=== PATIENT | female | born 1970 | race Caucasian/White ===

== ENCOUNTER 2018-02-07 20:02 | Emergency (ER) | payer OTHER ==
[2018-02-07] MEDS ORDERED: ONDANSETRON 4 MG/2 ML VIAL IVP ONE (20:59)
[2018-02-07] MEDS ORDERED: NS 1,000 ML IV ONE (20:59)
--- NOTE | 2018-02-07 20:59 | EDPHY ---
H & P Stated Complaint: c/o upper abd/n/v getting progressively worse, ongoing x 29 days Time Seen by Provider: 02/07/18 20:59 HPI/ROS: HPI CHIEF COMPLAINT: Abdominal pain HISTORY OF PRESENT ILLNESS: This is a 47-year-old female, otherwise healthy, she presents emergency room with abdominal pain she states she has had rather severe over the past 29 days. She reports that she has been suffering from what she thinks is gastritis for the past year. She has been self medicating with omeprazole. She did finally see her doctor yesterday who thought it may be gastritis as well however was told to go the emergency room if the pain got worse. She states she has been vomiting all day. Yellow ascitic vomit. Denies any chest pain or shortness of breath. Comes in waves rather severe. The pain is located in her epigastric region. Currently 8/10. Denies black tarry stools. Denies diarrhea. Denies chest pain or shortness of breath or pleuritic pain. Past Medical History: Self-diagnosed gastritis Past Surgical History: Thumb surgery Social History: Denies daily use drugs alcohol tobacco. Family History: Noncontributory ROS REVIEW OF SYSTEMS: A comprehensive 10 point review of systems is otherwise negative aside from elements mentioned in the history of present illness. Exam Constitutional appears nontoxic however uncomfortable triage nursing summary reviewed, vital signs reviewed, awake/alert. Eyes normal conjunctivae and sclera, EOMI, PERRLA. HENT normal inspection, atraumatic, moist mucus membranes, no epistaxis, neck supple/ no meningismus, no raccoon eyes. Respiratory clear to auscultation bilaterally, normal breath sounds, no respiratory distress, no wheezing. Cardiovascular rate normal, regular rhythm, no murmur, no edema, distal pulses normal. Gastrointestinal mild tender palpation epigastric region,, no rebound, no guarding, normal bowel sounds, no distension, no pulsatile mass. Genitourinary no CVA tenderness. Musculoskeletal no midline vertebral tenderness, full range of motion, no calf swelling, no tenderness of extremities, no meningismus, good pulses, neurovascularly intact. Skin pink, warm, & dry, no rash, skin atraumatic. Neurologic awake, alert and oriented x 3, AAOx3, moves all 4 extremities equally, motor intact, sensory intact, CN II-XII intact, normal cerebellar, normal vision, normal speech. Psychiatric normal mood/affect. Heme/Lymph/Immune no lymphadenopathy. Differential diagnosis includes but is not limited to and in no particular order : Bowel obstruction, appendicitis, gallbladder disease, diverticulitis, colitis , enteritis, perforated viscus, gastritis, GERD, esophagitis, urinary tract infection, pyelonephritis, kidney stones Medical Decision Making: Plan for this patient IV establishment with IV blood work, IV fluids, nausea medicine, and acid medication, ultrasound right upper quadrant, EKG, troponin, chest x-ray upright. Re-evaluate. Re-evaluation: EKG interpretation by me on record in [facility] system. Impression time of EKG 11/06/2023, sinus rhythm rate of [address] elevation no ST depression no significant T-wave abnormalities. 2205: This patient's ultrasound reveals that she has gallstones in her gallbladder there is no gallbladder wall thickening however her CBD is dilated. Her blood work shows an elevated bilirubin elevated LFTs. Given her bilious vomiting most likely she has gallstone or biliary colic. Will consult surgery. 2324: Spoke with Dr. Kelley with surgery. He will see and evaluate the patient. Patient be admitted the hospital for gallstones and abdominal pain. 0257AM: Patient re-evaluated she is resting comfortably and was sleeping here in the emergency room. Dr. Kelley did see in consult on her. He did not feel that she needs to emergently come into the hospital as her pain is well controlled and there is no evidence of cholecystitis. However patient does have biliary colic. She does have gallstones in her gallbladder. Given that the patient is pain-free Dr. Kelley did give her the options of going home versus coming into the hospital for an MRCP. Additionally the patient is thyroid is abnormal and he discuss that with her that she should have her thyroid appropriately treated as she has not been taking her thyroid medication. Dr. Kelley had discussion with the patient and they come to terms that given that she feels well and has no abdominal pain not vomiting and would like to go home she will go home to follow up with her primary care doctor about her thyroid additionally follow up outpatient with Dr. MARBELLA Alvarado for her gallstones. Additionally the patient understands return emergency room she develops worsening abdominal pain fever vomiting. Patient understands to refrain from eating spicy fatty greasy foods. Return precautions discussed with her through me she understands return emergency room if develops worsening abdominal pain fever vomiting or does not feel well. She is comfortable this plan. Source: Patient - Medical/Surgical History Hx Asthma: No Hx Chronic Respiratory Disease: No Hx Diabetes: No Hx Cardiac Disease: No Hx Renal Disease: No Hx Cirrhosis: No Hx Alcoholism: No Hx HIV/AIDS: No Hx Splenectomy or Spleen Trauma: No Other PMH: gerd, R thumb surg - Social History Smoking Status: Former smoker Constitutional: Initial Vital Signs Temperature (C) 36.6 C 02/07/18 20:39 Heart Rate 63 02/07/18 20:39 Respiratory Rate 20 02/07/18 20:39 O2 Sat (%) 98 02/07/18 20:39 O2 Delivery Mode Nasal Cannula O2 (L/minute) 2 Allergies/Adverse Reactions: codeine Allergy (Verified 02/07/18 20:43) Home Medications: Medication Instructions Recorded Omeprazole 02/07/18 Zantac 02/07/18 Medical Decision Making - Diagnostics Imaging Results: Imaging Impressions Abdomen Ultrasound 02/07/18 21:05 Impression: 1. Cholelithiasis with several subcentimeter gallstones. 2. No gallbladder wall thickening, pericholecystic fluid, gallbladder wall edema. 3. Dilated common bile duct up to 8 mm. 4. Hepatomegaly and hepatic steatosis without definite focal masses or ascites. Findings and recommendations discussed with Emergency Department physician, Ancelmo Oconnor MD at 22:03 hour, 02/07/2018. Final report concurs with initial preliminary interpretation. Chest X-Ray 02/07/18 21:05 Impression: 1. Mild cardiomegaly. 2. Mild bronchitis. 3. No definite pneumonia. - Data Points Laboratory Results: Laboratory Results 02/07/18 21:17 02/07/18 21:17 02/07/18 02/07/18 02/07/18 21:33 21:17 21:17 WBC RBC Hgb Hct MCV MCH MCHC RDW Plt Count MPV Neut % (Auto) Lymph % (Auto) [place] % (Auto) Eos % (Auto) Baso % (Auto) Nucleat RBC Rel Count Absolute Neuts (auto) Absolute Lymphs (auto) Absolute Monos (auto) Absolute Eos (auto) Absolute Basos (auto) Absolute Nucleated RBC Immature Gran % Immature Gran # PT 13.3 SEC SEC (12.0-15.0) INR 0.99 (0.83-1.16) APTT 27.9 SEC SEC (23.0-38.0) VBG Lactic Acid Sodium 142 mEq/L mEq/L (135-145) Potassium 4.3 mEq/L mEq/L (3.5-5.2) Chloride 106 mEq/L mEq/L (97-110) Carbon Dioxide 22 mEq/l mEq/l (22-31) Anion Gap 14 mEq/L mEq/L (8-16) BUN 13 mg/dL mg/dL (7-23) Creatinine 0.8 mg/dL mg/dL (0.6-1.0) Estimated GFR > 60 Glucose 113 mg/dL H mg/dL (70-100) Calcium 9.6 mg/dL mg/dL (8.5-10.4) Total Bilirubin 2.0 mg/dL H mg/dL (0.1-1.4) Conjugated Bilirubin 1.3 mg/dL H mg/dL (0.0-0.5) Unconjugated Bilirubin 0.7 mg/dL mg/dL (0.0-1.1) AST 190 IU/L H IU/L (14-46) ALT 153 IU/L H IU/L (9-52) Alkaline Phosphatase 90 IU/L IU/L (38-126) Troponin I < 0.012 ng/mL ng/mL (0.000-0.034) Total Protein 7.8 g/dL g/dL (6.3-8.2) Albumin 4.5 g/dL g/dL (3.5-5.0) Lipase 142 IU/L IU/L (23-300) TSH 6.670 uIU/mL H uIU/mL (0.465-4.680) 02/07/18 02/07/18 21:17 21:17 WBC 9.61 10^3/uL H 10^3/uL (3.80-9.50) RBC 4.17 10^6/uL L 10^6/uL (4.18-5.33) Hgb 12.9 g/dL g/dL (12.6-16.3) Hct 38.0 % % (38.0-47.0) MCV 91.1 fL fL (81.5-99.8) MCH 30.9 pg pg (27.9-34.1) MCHC 33.9 g/dL g/dL (32.4-36.7) RDW 12.5 % % (11.5-15.2) Plt Count 211 10^3/uL 10^3/uL (150-400) MPV 11.4 fL fL (8.7-11.7) Neut % (Auto) 79.5 % H % (39.3-74.2) Lymph % (Auto) 13.6 % L % (15.0-45.0) [place] % (Auto) 5.3 % % (4.5-13.0) Eos % (Auto) 0.7 % % (0.6-7.6) Baso % (Auto) 0.6 % % (0.3-1.7) Nucleat RBC Rel Count 0.0 % % (0.0-0.2) Absolute Neuts (auto) 7.63 10^3/uL H 10^3/uL (1.70-6.50) Absolute Lymphs (auto) 1.31 10^3/uL 10^3/uL (1.00-3.00) Absolute Monos (auto) 0.51 10^3/uL 10^3/uL (0.30-0.80) Absolute Eos (auto) 0.07 10^3/uL 10^3/uL (0.03-0.40) Absolute Basos (auto) 0.06 10^3/uL 10^3/uL (0.02-0.10) Absolute Nucleated RBC 0.00 10^3/uL 10^3/uL (0-0.01) Immature Gran % 0.3 % % (0.0-1.1) Immature Gran # 0.03 10^3/uL 10^3/uL (0.00-0.10) PT INR APTT VBG Lactic Acid 1.6 mmol/L mmol/L (0.7-2.1) Sodium Potassium Chloride Carbon Dioxide Anion Gap BUN Creatinine Estimated GFR Glucose Calcium Total Bilirubin Conjugated Bilirubin Unconjugated Bilirubin AST ALT Alkaline Phosphatase Troponin I Total Protein Albumin Lipase TSH Medications Given: Discontinued Medications Dicyclomine HCl (Bentyl) 10 mg PO EDNOW ONE Stop: 02/07/18 23:04 Last Admin: 04/23/18 23:12 Dose: 10 mg Ertapenem (Invanz) 1 gm IV EDNOW ONE PRN Reason: Protocol Stop: 02/07/18 22:10 Last Admin: 02/07/18 22:32 Dose: 1 gm Famotidine (Pepcid) 20 mg IVP EDNOW ONE Stop: 02/07/18 21:06 Last Admin: 02/07/18 21:17 Dose: 20 mg Sodium Chloride (Ns) 1,000 mls @ 0 mls/hr IV EDNOW ONE; Wide Open PRN Reason: Protocol Stop: 02/07/18 21:00 Last Admin: 02/07/18 21:18 Dose: 1,000 mls Ondansetron HCl (Zofran) 4 mg IVP EDNOW ONE Stop: 02/07/18 21:00 Last Admin: 02/07/18 21:17 Dose: 4 mg Departure - Departure Disposition: Home, Routine, Self-Care Clinical Impression: Gallstones Condition: Fair
[2018-02-07] MEDS ORDERED: FAMOTIDINE 20 MG/2 ML SDV IVP ONE (21:05)
[2018-02-07 21:26] LABS: PLATELET COUNT 211 10^3/uL (150-400)
--- NOTE | 2018-02-07 21:26 | CPEKG ---
Heart Rate: 53 RR Interval: 1132 P-R Interval: 132 QRSD Interval: 88 QT Interval: 468 QTC Interval: 440 P [place]: 42 QRS [place]: -5 T Wave [place]: 18 EKG Severity - NORMAL ECG - EKG Impression: SINUS RHYTHM Electronically Signed By: Gianluca Ohara 07-Feb-2018 23:55:03
[2018-02-07 21:37] LABS: INR 0.99 (0.83-1.16); PROTIME(PATIENT) 13.3 SEC (12.0-15.0)
[2018-02-07] MEDS ORDERED: ERTAPENEM 1 GM VIAL IV ONE (22:09)
[2018-02-07] MEDS ORDERED: DICYCLOMINE 10 MG CAP PO ONE (23:03)
--- NOTE | 2018-02-08 02:47 | GHP ---
[f rep st] PREOP HISTORY AND PHYSICAL DATE OF ADMISSION: 02/07/2018 HISTORY: The patient is a 47-year-old female who has been suffering with abdominal pain since last May. Until the last 3-4 months, it has been occurring a little more frequently than once a month. It usually lasts about 6 hours. In the last 3-4 months, it has been occurring approximately weekly. When the attack occurs, she cannot get comfortable. She has treated in the last 29 days with omeprazole, which appears to minimize her attacks. Her pain usually occurs late at night. Interestingly, she does have reflux and early satiety. She has been going up and down with her weight. When she came to the ER today, she was found to have a sonographically positive Mane sign without wall thickening, with a gallbladder full of stones. The patient states that if she eats too much fatty food, she cannot digest it and she gets a foul- smelling diarrhea. PAST MEDICAL HISTORY: She has smoked since age 23, initially a quarter-pack a day but now about 1 cigarette every Wednesday. She does not drink anymore. She has a true allergy to codeine manifested by itching and swelling of her lips and difficulty breathing. Her only current medications are Prilosec and Tagamet. Her only other surgery has been rebuilding of her right thumb joints. There is no history of rheumatic fever, tuberculosis, hepatitis, or transfusions. REVIEW OF SYSTEMS: She has had 4-5 concussions from sports as a young girl. She wears lenses for visual correction. She has a deviated septum. She has 1 left upper root canal with a temporary cap. She has been hypothyroid and has not taken her medications for greater than a month. She is unclear as to the dose. Her last mammogram was 3 years ago. Her last Pap smear was a year ago January. Diarrhea has been an issue for her. No limits on her activities. No history of steroid use. PHYSICAL EXAMINATION: GENERAL: She has been given Bentyl and has been instructed to lie on her right side. Her pain is totally resolved at this point. She is awake, alert, and oriented, personable, friendly. NEUROLOGIC: There are no focal or lateralizing neurologic findings. LYMPHS: There is no cervical, supraclavicular, axillary, or inguinal lymphadenopathy. NECK: Thyroid is normal to palpation. BACK: Unremarkable. LUNGS: Clear to auscultation. CARDIAC: Shows S1, S2 to be normal. ABDOMEN: Soft and nontender. There is no Mane sign at this time. IMPRESSION: This patient has cholelithiasis with biliary colic. Laboratories show an elevated bilirubin at 2.0 and elevated direct bilirubin at 1.4. She has minor dilatation of the common bile duct. Her lipase is normal. Her transaminases are normal. Her alkaline phosphatase is normal. She does have biliary colic with fat intolerance and the associated upper gastrointestinal issues of early satiety and reflux. I think it is reasonable to take out her gallbladder at this point, but I have concerns about how hypothyroid she truly is. I have suggested that we check her TSH. If her TSH is in the normal range, I suggest that I admit her to the hospital and proceed with an MRCP (and ERCP if need be), followed by an elective cholecystectomy. If her TSH is dramatically elevated, then I suggest outpatient therapy using Bentyl if she has attacks and thyroid replacement for approximately 1 month until we achieve a euthyroid state and then pursue the workup and treatment. She can stop smoking in the interim. /[id number]/MODL MTDD
[2018-02-08 03:37] VITALS: BP 101/73
== END 2018-02-08 03:41 | disposition home or self-care (01) ==
LOC: UNDOADMOB 23:21
DX: K80.20 Calculus of gallbladder without cholecystitis without obstruction (principal); E86.9 Volume depletion, unspecified; Z87.891 Personal history of nicotine dependence
CPT/HCPCS: 96374; J1335; J2405

== ENCOUNTER → 2018-02-17 | Outpatient (CLI) | payer OTHER | LOC: FIMAGING 15:14 | PROVIDERS: ATTEND Family Medicine | DX: Z03.89 Encounter for observation for other suspected diseases and conditions ruled out (principal) ==

== ENCOUNTER 2018-03-08 06:02 | Day surgery (SDC) | payer OTHER ==
[2018-03-08] MEDS ORDERED: LIDOCAINE 1% 2 ML INJ ID PRN (06:14)
[2018-03-08] MEDS ORDERED: LR 1,000 ML IV ONE (06:14)
[2018-03-08] MEDS ORDERED: BUPIVACAINE 0.5% 30 ML SDV ONE (06:15)
[2018-03-08] MEDS ORDERED: EPINEPHrine 1 MG/ML INJ ONE (06:15)
[2018-03-08] MEDS ORDERED: INDOCYANINE GREEN 25 MG VIAL IV ONE (07:22)
[2018-03-08] MEDS ORDERED: MIDAZOLAM 2 MG/2 ML VIAL IVP ONE (07:22)
[2018-03-08] MEDS ORDERED: cefOXitin SODIUM 2 GM in STERILE WATER INJ 21 ML IV ONE (07:22)
[2018-03-08] MEDS ORDERED: MIDAZOLAM 2 MG/2 ML VIAL ONE ×2 (07:23→10:27)
--- NOTE | 2018-03-08 07:23 | PDHPUP ---
History & Physical Update H&P update statement: This history and physical update is based on an assessment of the patient which was completed after admission or registration (within 24 hours), but prior to the surgery/procedure. H&P update: H&P reviewed & patient examined, no change in patient's condition since H&P completed
[2018-03-08] MEDS ORDERED: INDOCYANINE GREEN 25 MG VIAL ONE (07:24)
--- NOTE | 2018-03-08 07:24 | PDANEPAE ---
ANE History of Present Illness cholelithiass ANE Past Medical History - Cardiovascular History Hx Hypertension: No Hx Arrhythmias: No Hx Chest Pain: No Hx Coronary Artery / Peripheral Vascular Disease: No Hx CHF / Valvular Disease: No Hx Palpitations: No Cardiovascular History Comment: BP RUNS LOW - Pulmonary History Hx COPD: No Hx Asthma/Reactive Airway Disease: No Hx Recent Upper Respiratory Infection: No Hx Oxygen in Use at Home: No Hx Sleep Apnea: Yes Sleep Apnea Screening Result - Last Documented: Positive - Neurologic History Hx Cerebrovascular Accident: No Hx Seizures: No Hx Dementia: No - Endocrine History Hx Diabetes: No Endocrine History Comment: HYPOTHYROID - Renal History Hx Renal Disorders: No - Liver History Hx Hepatic Disorders: No Hepatic History Comment: CURRENT GB SXS - Neurological & Psychiatric Hx Hx Neurological and Psychiatric Disorders: No - Cancer History Hx Cancer: No - Congenital Disorder History Hx Congenital Disorders: No - GI History Hx Gastrointestinal Disorders: No - Other Health History Other Health History: NEG - Chronic Pain History Chronic Pain: Yes (L THUMB PAIN) - Surgical History Prior Surgeries: THUMB R JOINT RECONSTRUCTION ANE Review of Systems Review of Systems: - Exercise capacity METS (RN): 5 METS ANE Patient History - Allergies Allergies/Adverse Reactions: codeine Allergy (Verified 03/02/18 14:46) SKIN ITCHING, SOB - Home Medications Home Medications: Herbals/Supplements -Info Only 03/02/18 [Last Taken 1 Week Ago ~03/01/18] Ibuprofen 03/02/18 [Last Taken 1 Month Ago ~02/06/18] Levothyroxine 03/02/18 [Last Taken 1 Day Ago ~03/07/18] - NPO status NPO Since - Liquids (Date): 03/08/18 NPO Since - Liquids (Time): 05:30 NPO Since - Solids (Date): 03/07/18 NPO Since - Solids (Time): 20:00 - Smoking Hx Smoking Status: Current some day smoker - Family Anes Hx Family Hx Anesthesia Complications: NEG ANE Labs/Vital Signs - Vital Signs Blood Pressure: 114/73 Heart Rate: 63 Respiratory Rate: 18 O2 Sat (%): 97 Height: 160.02 cm Weight: 72.575 kg ANE Physical Exam - Airway Neck exam: FROM Mallampati Score: Class 1 Mouth exam: normal dental/mouth exam - Pulmonary Pulmonary: no respiratory distress - Cardiovascular Cardiovascular: regular rate and rhythym - ASA Status ASA Status: II ANE Anesthesia Plan Anesthesia Plan: general endotracheal anesthesia
[2018-03-08] MEDS ORDERED: fentaNYL 100 MCG/2 ML INJ ONE ×2 (07:44→07:45)
[2018-03-08] MEDS ORDERED: HYDROmorphONE/DILAUDID 2 MG/ML INJ ONE (07:45)
[2018-03-08] MEDS ORDERED: PROPOFOL 200 MG/20 ML VIAL ONE (07:45)
[2018-03-08] MEDS ORDERED: epHEDrine SULFATE 10 MG/ML SYR ONE (08:29)
[2018-03-08] MEDS ORDERED: ONDANSETRON 4 MG/2 ML VIAL ONE (08:29)
[2018-03-08] MEDS ORDERED: DEXAMETHASONE 4 MG/ML VIAL ONE (08:29)
[2018-03-08] MEDS ORDERED: PHENYLEPHRINE HCL 100 MCG/ML SYR ONE (08:29)
[2018-03-08] MEDS ORDERED: ROCURONIUM 50 MG/5 ML VIAL ONE (08:29)
[2018-03-08] MEDS ORDERED: PROMETHAZINE HCL 25 MG/ML INJ IVP PRN (08:35)
[2018-03-08] MEDS ORDERED: HYDROCODONE/APAP 5/325 TAB PO PRN (08:35)
[2018-03-08] MEDS ORDERED: fentaNYL 100 MCG/2 ML INJ IVP PRN (08:35)
[2018-03-08] MEDS ORDERED: HYDROmorphONE/DILAUDID 2 MG/ML INJ IVP PRN (08:35)
[2018-03-08] MEDS ORDERED: NALOXONE HCL 0.4 MG/ML INJ IVP PRN (08:35)
[2018-03-08] MEDS ORDERED: MEPERIDINE 25 MG/0.5 ML AMP IVP PRN (08:35)
[2018-03-08] MEDS ORDERED: ONDANSETRON 4 MG/2 ML VIAL IVP PRN (08:35)
--- NOTE | 2018-03-08 09:47 | POSTANESTH ---
Post Anesthetic Evaluation Cardiovascular Status: Normal, Stable Respiratory Status: Normal, Stable Level of Consciousness/Mental Status: Can Participate in Eval Pain Control: Adequate, Prn Tx Ordered Nausea/Vomiting Control: Adequate, Prn Tx Ordered Complications Possibly Related to Anesthesia: None Noted
--- NOTE | 2018-03-08 09:51 | POSTOPPROG ---
Post Op Note Date of Operation: 03/08/18 Surgeon: Kristopher Maldonado Business Solutions Director: Dr. Gabriel Anesthesiologist: Dr. Jauregui Anesthesia: GET(General Endotracheal) Pre-op Diagnosis: Cholecystitis Post-op Diagnosis: same Procedure: SILS lap avelino Inf/Abcess present in the surg proc area at time of surgery?: No EBL: Minimal
--- NOTE | 2018-03-08 10:12 | GOP ---
[f rep st] OPERATIVE REPORT DATE OF OPERATION: 03/08/2018 SURGEON: Jose D Maldonado MD DIE CASTING SUPERVISOR: Dr. Gabriel whose presence was requested by me and medically necessary for the safe an d timely completion of the case. ANESTHESIA: General endotracheal anesthesia per Dr. Jauregui. PREOPERATIVE DIAGNOSIS: Cholecystitis. POSTOPERATIVE DIAGNOSIS: Cholecystitis. PROCEDURE PERFORMED: Single site robotic laparoscopic cholecystectomy. FINDINGS: Patient had mild inflammation of the gallbladder. No other lesions were identified. ESTIMATED BLOOD LOSS: 20 cc. INDICATIONS: A 47-year-old female with a history of abdominal pain. Imaging demonstrated gallstones . Risks and benefits of the procedure discussed with the patient and her family. Their questions we re answered. They wished to proceed. DESCRIPTION OF PROCEDURE: The patient was in the supine position. After the induction of adequate g eneral endotracheal anesthesia, the patient was prepped and draped in the standard surgical fashion. Marcaine 0.5% was injected throughout the umbilical area. A transverse incision was made through th e umbilicus and carried down to subcutaneous tissue with Bovie cautery and blunt dissection. The fas benson was exposed and divided vertically in the midline. The fascia was elevated, and the abdomen was carefully entered. A 2.5-cm incision was made and the single site trocar was placed carefully. Next , the camera trocar was placed into the single site trocar and the camera itself followed. The area was inspected and no damage was seen from trocar placement. At this point, the robot was moved into position. The patient was then tilted into reverse Trendelenburg and the camera port was docked. Ne xt, the underwriting assistant port was placed and the curved robotic arm ports were placed. These were all place d under direct vision without incident. The robot was fully docked and the dissection proceeded robo tically. Adhesions were taken down using blunt dissection and Bovie cautery. The cystic structures were then dissected similarly. The cystic duct and cystic artery were clearly identified. In addition, the hernandez bhepatic space was dissected. Once this critical view was obtained, the cystic duct and artery were clipped and divided. The gallbladder was then elevated off the liver bed using Bovie cautery and ronel nt dissection. The gallbladder was grasped in the underwriting assistant port. The robot itself was undocked and the patient ret urned to the neutral position. The single site port and underwriting assistant trocar were removed together. The gallbladder was then extracted. The abdomen was thoroughly irrigated and aspirated. Good hemostasi s was noted. The fascia at the trocar site was then closed using 0 Vicryl in a running fashion. Wou nds were thoroughly irrigated. Skin was closed with 4-0 Monocryl in a subcuticular stitch. The woun d was then sterilely dressed. The patient was extubated and taken to PACU in stable condition. COMPLICATIONS: None. DRAINS: None. /[id number]/MODL
[2018-03-08 11:45] VITALS: BP 112/62
== END 2018-03-08 12:41 | disposition home or self-care (01) ==
LOC: FSGY 06:02
PROVIDERS: ATTEND Surgery
PROC: 0FT44ZZ Resection of Gallbladder, Percutaneous Endoscopic Approach (ICD-10-PCS; principal; 2018-03-08 07:30)
DX: K80.50 Calculus of bile duct without cholangitis or cholecystitis without obstruction (principal); E03.9 Hypothyroidism, unspecified
CPT/HCPCS: J0171; J0694; J1100; J1170; J1200; J2250; J2370; J2405; J2704; J3010